=== PATIENT | female | born 1935 | race Caucasian/White ===

== ENCOUNTER → 2016-12-19 | Outpatient (CLI) | payer MEDICARE, OTHER ==
[~2016-12-19] MED LIST: ASP81TEC PO; BACL10TA PO; CATHETER FLUSH 10 ML SYR IV PRN; GABA-486 PO; GBPN100C PO; IOHEXOL 350 MG/ML 100 ML (OMNIPAQUE 350) VIAL IV ONE; NF-TYLARTH PO; NS 100 ML (IVPB) BAG IV ONE; OMEP-10 PO; ROPI1TAB40 PO
[2016-12-19 12:52] LABS: CREATININE SERUM 1.02 MG/DL (0.60-1.30)
--- NOTE | 2016-12-19 14:40 | Diagnostic Imaging Report ---
PROCEDURE: CT angiography of the abdomen with and without contrast. TECHNIQUE: Multiple contiguous axial images were obtained through the abdomen and pelvis after administration of intravenous contrast. MIP reconstructions were made. INDICATION: Abdominal aortic aneurysm status post endograft placement. 85 mL of Omnipaque 350 is administered intravenously. FINDINGS: The lung bases demonstrate minimal atelectasis or scarring. The liver, the spleen, the pancreas, and the adrenal glands appear unremarkable. The kidneys have symmetric enhancement and contrast excretion. There is no hydronephrosis. The unenhanced phase demonstrates no renal stones. There is an abdominal aortic aneurysm with maximum caliber of 4.8 cm. This is associated with an endograft repair with a bifurcating aortoiliac graft seen in place landing in the distal common iliac artery bilaterally. The endograft excludes flow from the aneurysmal sac outside the graft. No evidence of an endoleak. There is suggestion of moderate stenosis along the proximal aspect of the right iliac limb. The iliac limbs otherwise appear patent. Both renal arteries appear to be opacified. The origin of the left renal artery obscured by beam hardening artifact from the graft fenestrated portion. The origin of the right renal artery demonstrates a short segment focal severe stenosis. The SMA demonstrates proximal moderate to severe stenosis. The celiac trunk demonstrates proximal mild stenosis. The RICKY appears to be occluded with reconstitution from SMA branches. There is a pulse generator in the left lumbar region with a likely epidural lead coursing above the [id number] of this exam. IMPRESSION: 1. There is a 4.8 cm infrarenal AAA treated with a bifurcating aortoiliac endograft with no evidence of endoleak. 2. There is moderate stenosis suggested along the proximal aspect of the right iliac limb of the endograft. 3. 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 4. 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 Dictated by: Dictated on workstation # [id number]
== END ==
LOC: RAD 12:25
PROVIDERS: ATTEND Nurse Practitioner
DX: I71.4 Abdominal aortic aneurysm, without rupture (principal); I70.1 Atherosclerosis of renal artery; K55.1 Chronic vascular disorders of intestine; Z95.828 Presence of other vascular implants and grafts
CPT/HCPCS: 36415; 74175; 82565

== ENCOUNTER → 2017-05-13 | Outpatient (CLI) | payer MEDICARE, OTHER ==
[~2017-05-13] MED LIST changes: -NS 100 ML (IVPB) BAG IV ONE; +NS 250 ML (IVPB) BAG IV ONE
[2017-05-13 10:05] LABS: ALBUMIN 4.2 GM/DL (3.2-4.5); CALCIUM 9.2 MG/DL (8.5-10.1); CREATININE SERUM 0.96 MG/DL (0.60-1.30); PHOSPHORUS 3.1 MG/DL (2.3-4.7); POTASSIUM 3.9 MMOL/L (3.6-5.0)
--- NOTE | 2017-05-13 10:51 | Diagnostic Imaging Report ---
PROCEDURE: CT angiography of the abdomen with and without contrast. TECHNIQUE: Multiple contiguous axial images were obtained through the abdomen and pelvis after administration of intravenous contrast. MIP reconstructions were made. INDICATION: Abdominal aortic aneurysm, followup. FINDINGS: The lung bases are clear. No discrete liver mass is identified. The gallbladder is unremarkable. The pancreas and spleen are unremarkable. No adrenal mass is seen. The kidneys appear stable. The abdominal aortic aneurysm treated with an aortic stent graft is again noted. The excluded aneurysm sac dimensions are stable at approximately 4.8 cm AP. No endoleak is detected. No periaortic fluid collection is seen to suggest leakage or rupture. Both limbs of the iliac graft appear to be patent. Small and large bowel loops are normal in caliber. There is no ascites. IMPRESSION: Stable abdominal aortic aneurysm treated with an aortic stent graft when compared with prior study from 12/19/2016. There is no evidence of endoleak. No complicating features are detected. Dictated by: Dictated on workstation # [id number]
== END ==
LOC: RAD 09:25
PROVIDERS: ATTEND Nurse Practitioner
DX: I71.4 Abdominal aortic aneurysm, without rupture (principal)
CPT/HCPCS: 36415; 74175; 80069

== ENCOUNTER → 2017-10-23 | Outpatient (CLI) | payer MEDICARE, OTHER ==
[~2017-10-23] MED LIST changes: -CATHETER FLUSH 10 ML SYR IV PRN; -NS 250 ML (IVPB) BAG IV ONE
[2017-10-23 10:55] LABS: ALBUMIN 4.3 GM/DL (3.2-4.5); CALCIUM 9.6 MG/DL (8.5-10.1); CREATININE SERUM 0.95 MG/DL (0.60-1.30); PHOSPHORUS 2.8 MG/DL (2.3-4.7); POTASSIUM 3.9 MMOL/L (3.6-5.0)
--- NOTE | 2017-10-23 13:59 | Diagnostic Imaging Report ---
INDICATION: Abdominal aortic aneurysm, status post repair. Comparison is made with prior CT from 05/13/2017. The lung bases are clear. Liver and gallbladder are unremarkable. Pancreas and spleen are unremarkable. The adrenal glands and kidneys are unremarkable. Infrarenal abdominal aortic aneurysm treated with a stent graft is again noted. Aneurysm sac dimensions are stable at 4.8 cm AP. No definite endoleak is identified. Both limbs of the stent graft appear to be patent. No periaortic fluid collection is seen. The bowel loops are normal caliber. There is sigmoid diverticulosis without evidence of acute diverticulitis. No free fluid is seen. Visualized bladder is unremarkable. Bony structures are not acute. IMPRESSION: 1. Stable infrarenal abdominal aortic aneurysm is treated with a stent graft. There is no evidence of endoleak. 2. Uncomplicated sigmoid diverticulosis. Dictated by: Dictated on workstation # [id number]
== END ==
LOC: RAD 10:22
PROVIDERS: ATTEND Nurse Practitioner
DX: I71.4 Abdominal aortic aneurysm, without rupture (principal); K57.30 Diverticulosis of large intestine without perforation or abscess without bleeding; Z98.890 Other specified postprocedural states; Z95.828 Presence of other vascular implants and grafts
CPT/HCPCS: 36415; 74174; 80069

== ENCOUNTER → 2018-10-23 | Outpatient (CLI) | payer MEDICARE, OTHER ==
[~2018-10-23] MED LIST changes: +AMLO5TAB9 PO; +HOLD METFORMIN - RECEIVED CONTRAST 20 ML VIAL IV SCH; +NS 100 ML (IVPB) BAG IV ONE
[2018-10-23 09:15] LABS: ALBUMIN 4.2 GM/DL (3.2-4.5); CREATININE SERUM 1.08 MG/DL (0.60-1.30); PHOSPHORUS 3.1 MG/DL (2.3-4.7); POTASSIUM 3.7 MMOL/L (3.6-5.0)
--- NOTE | 2018-10-23 12:13 | Diagnostic Imaging Report ---
PROCEDURE: CT angiography of the abdomen with and without contrast. TECHNIQUE: Multiple contiguous axial images were obtained through the abdomen and pelvis after administration of intravenous contrast. 3D MIP reconstructions were made. Auto Exposure Controls were utilized during the CT exam to meet ALARA standards for radiation dose reduction. INDICATION: Abdominal aortic aneurysm, status post aortic stent graft repair. Exams performed for followup. FINDINGS: Lung bases show minimal scarring or atelectasis right lower lobe. The liver and gallbladder are unremarkable. The pancreas and spleen are unremarkable. No adrenal mass is detected. Kidneys are unremarkable. Abdominal aortic aneurysm treated with an aortic stent graft is again noted. The excluded aneurysm sac dimension is 4.2 cm AP diameter compared with 4.8 cm on prior exam. Both limbs of the iliac graft are patent. There is no evidence of an endoleak. No perianeurysmal fluid collection or evidence of rupture is identified. Bowel loops are normal caliber. No ascites. IMPRESSION: 1. Abdominal aortic aneurysm treated with aortic stent graft. Excluded aneurysm sac dimensions have decreased in size since examination one year earlier. There is no evidence of endoleak. Dictated by: Dictated on workstation # [id number]
== END ==
LOC: RAD 08:40
PROVIDERS: ATTEND Thoracic Surgery (Cardiothoracic Vascular Surgery)
DX: I71.4 Abdominal aortic aneurysm, without rupture (principal); Z95.828 Presence of other vascular implants and grafts
CPT/HCPCS: 36415; 74175; 80069

== ENCOUNTER 2018-10-27 09:24 | Emergency (ER) | payer MEDICARE, OTHER ==
[~2018-10-27] VITALS: Ht 162.5 cm; Wt 59.0 kg
[~2018-10-27 09:24] MED LIST changes: -AMLO5TAB9 PO; -HOLD METFORMIN - RECEIVED CONTRAST 20 ML VIAL IV SCH; -IOHEXOL 350 MG/ML 100 ML (OMNIPAQUE 350) VIAL IV ONE; -NS 100 ML (IVPB) BAG IV ONE
--- NOTE | 2018-10-27 10:27 | ED EENT ---
History of Present Illness General Chief Complaint: Eye Problems Stated Complaint: R EYE ISSUES Nursing Triage Note: PT AMB TO [facility] 8 WITH COMPLAINT OF RIGHT EYE REDNESS. STATES HAS BEEN GOING ON FOR THREE DAYS. STATES HAS NOT IMPROVED. Source: patient Exam Limitations: no limitations (ABBEY SHORT) History of Present Illness Date Seen by Provider: Oct 27, 2018 Time Seen by Provider: 10:13 Initial Comments Patient presents to ER from home with chief complaint she noticed bright red blood in the whites of her eye on the right side. She does not have a history of high blood pressure but she does have noted white coat syndrome. She has a AAA followed by Dr. Prasad. Last she had an annual CT of her belly to examine it but she has not got the results yet. She's not having any belly pain now. She takes aspirin every other day and omeprazole as well as some vitamins. She is followed by Dr. Mason for primary care. (ABBEY SHORT) Allergies and Home Medications Allergies Coded Allergies: Choline Salicylate (Unverified Allergy, Unknown, 12/01/13) Diclofenac (Unverified Allergy, Unknown, 12/01/13) Flurazepam HCl (Unverified Allergy, Unknown, 12/01/13) [place]-3 acid Ethyl Esters (Unverified Allergy, Unknown, 12/01/13) Occpbsg-Mfx-Fli Reductase Inhibitor (Unverified Allergy, Unknown, 12/01/13) Sulfa (Sulfonamide Antibiotics) (Unverified Allergy, Unknown, 12/01/13) Sulindac (Unverified Allergy, Unknown, 12/01/13) adhesive (Unverified Allergy, Unknown, 12/01/13) alprazolam (Unverified Allergy, Unknown, 12/01/13) amitriptyline (Unverified Allergy, Unknown, 12/01/13) amitriptyline HCl (Unverified Allergy, Unknown, 12/01/13) "ITCHING" aspirin (Unverified Allergy, Unknown, 12/01/13) azithromycin (Unverified Allergy, Unknown, RASH, 12/01/13) clopidogrel bisulfate (Unverified Allergy, Unknown, 12/01/13) codeine (Unverified Allergy, Unknown, 12/01/13) cyclobenzaprine HCl (Unverified Allergy, Unknown, 12/01/13) ezetimibe (Unverified Allergy, Unknown, 12/01/13) fexofenadine HCl (Unverified Allergy, Unknown, 12/01/13) ibuprofen (Unverified Allergy, Unknown, 12/01/13) iodine (Unverified Allergy, Unknown, 12/01/13) lorazepam (Unverified Allergy, Unknown, 12/01/13) magnesium salicylate (Unverified Allergy, Unknown, 12/01/13) meperidine HCl (Unverified Allergy, Unknown, 12/01/13) morphine (Unverified Allergy, Unknown, 12/01/13) naproxen (Unverified Allergy, Unknown, 12/01/13) niacin (Unverified Allergy, Unknown, 12/01/13) piroxicam (Unverified Allergy, Unknown, 12/01/13) potassium (Unverified Allergy, Unknown, 12/01/13) propoxyphene HCl (Unverified Allergy, Unknown, 12/01/13) triazolam (Unverified Allergy, Unknown, 12/01/13) Home Medications Acetaminophen 650 Mg Cplt, 1,300 MG PO PRN PRN for PAIN, (Reported) Amlodipine Besylate 5 Mg Tablet, 5 MG PO DAILY Prescribed by: TAMICA DURÁN on 10/27/18 1157 Baclofen 10 Mg Tablet, 1 EACH PO HS, (Reported) Gabapentin 100 Mg Capsule, 200 MG PO AM, (Reported) Gabapentin 100 Mg Capsule, 300 MG PO HS, (Reported) Omeprazole 20 Mg Capsule.dr, 20 MG PO DAILY PRN, (Reported) TAKES FOR ACID CONTROL Ropinirole Hcl 1 Mg Tablet, 1 MG PO HS, (Reported) Patient Home Medication List Home Medication List Reviewed: Yes (ABBEY SHORT) Review of Systems Review of Systems Constitutional: see HPI; No chills, No fever Eyes: See HPI, Other (broken blood vessel in right eye conjunctiva) (TAMICA DURÁN) All Other Systems Reviewed Negative Unless Noted: Yes (TAMICA DURÁN) Past Basyllk-Hxkyjy-Lfghwr Hx Past Med/Social Hx: Reviewed Nursing Past Med/Soc Hx (TAMICA DURÁN) Patient Social History Alcohol Use: Denies Use Recreational Drug Use: No Smoking Status: Never a Smoker Recent Foreign Travel: No Contact w/Someone Who Travel: No Recent Infectious Disease Expo: No Physical Abuse: No Sexual Abuse: No Mistreated: No Fear: No (ABBEY SHORT) Immunizations Up To Date Date of Pneumonia Vaccine: Nov 19, 1999 Date of Influenza Vaccine: Dec 02, 2013 (ABBEY SHORT) Past Medical History Surgeries: Yes (THORACIC OUTLET BILATERAL ARMS, RIGHT KNEE SCOPE, BACK SURGER, LEFT CEA, ) Respiratory: No Cardiac: Yes (AAA) Aneurysm Neurological: Yes Reproductive Disorders: No Sexually Transmitted Disease: No Gastrointestinal: Yes (COLON POLYP REMOVED) Musculoskeletal: Yes (MUCLE LOSS FROM USE OF STATINS) Endocrine: No Blood Disorders: Yes (ABBEY SHORT) Family Medical History Reviewed Nursing Family Hx (TAMICA DURÁN) Physical Exam Vital Signs Vital Signs - First Documented 10/27/18 09:40 Temp 36.4 Pulse 73 Resp 16 B/P (MAP) 219/109 Pulse Ox 99 O2 Delivery Room Air (TAMICA DURÁN) Height, Weight, BMI Height: 5'4.00" Weight: 170lbs. 0.0oz. 77.065290mc; 22.00 BMI Method: (ABBEY SHORT) General Appearance: WD/WN, no apparent distress Eyes: right eye conjunctival hemorrhage; bilateral eye PERRL, bilateral eye EOMI Cardiovascular: normal peripheral pulses, regular rate, rhythm, no edema, no gallop, no JVD, no murmur Respiratory: chest non-tender, lungs clear, normal breath sounds, no respiratory distress, no accessory muscle use Neurologic/Psychiatric: alert, normal mood/affect, oriented x 3 Skin: normal color, warm/dry (TAMICA DURÁN) Progress/Results/Core Measures Results/Orders Lab Results Laboratory Tests Test 10/27/18 10:50 Range/Units White Blood Count 4.9 4.3-11.0 10^3/uL Red Blood Count 3.70 L 4.35-5.85 10^6/uL Hemoglobin 11.2 L 11.5-16.0 G/DL Hematocrit 35 35-52 % Mean Corpuscular Volume 93 80-99 FL Mean Corpuscular Hemoglobin 30 25-34 PG Mean Corpuscular Hemoglobin Concent 33 32-36 G/DL Red Cell Distribution Width 13.4 10.0-14.5 % Platelet Count 158 130-400 10^3/uL Mean Platelet Volume 10.7 H 7.4-10.4 FL Neutrophils (%) (Auto) 71 42-75 % Lymphocytes (%) (Auto) 18 12-44 % Monocytes (%) (Auto) 10 0-12 % Eosinophils (%) (Auto) 1 0-10 % Basophils (%) (Auto) 0 0-10 % Neutrophils # (Auto) 3.5 1.8-7.8 X 10^3 Lymphocytes # (Auto) 0.9 L 1.0-4.0 X 10^3 Monocytes # (Auto) 0.5 0.0-1.0 X 10^3 Eosinophils # (Auto) 0.1 0.0-0.3 10^3/uL Basophils # (Auto) 0.0 0.0-0.1 10^3/uL Sodium Level 141 135-145 MMOL/L Potassium Level 4.0 3.6-5.0 MMOL/L Chloride Level 106 98-107 MMOL/L Carbon Dioxide Level 25 21-32 MMOL/L Anion Gap 10 5-14 MMOL/L Blood Urea Nitrogen 23 H 7-18 MG/DL Creatinine 1.09 0.60-1.30 MG/DL Estimat Glomerular Filtration Rate 48 BUN/Creatinine Ratio 21 Glucose Level 96 70-105 MG/DL Calcium Level 9.6 8.5-10.1 MG/DL Corrected Calcium 9.4 8.5-10.1 MG/DL Total Bilirubin 0.5 0.1-1.0 MG/DL Aspartate Amino Transf (AST/SGOT) 20 5-34 U/L Alanine Aminotransferase (ALT/SGPT) 10 0-55 U/L Alkaline Phosphatase 74 40-136 U/L Total Protein 7.0 6.4-8.2 GM/DL Albumin 4.3 3.2-4.5 GM/DL (BERNOT,TAMICA) Medications Given in ED Current Medications Medications Dose Ordered Sig/Kathryn Route Start Time Stop Time Status Last Admin Dose Admin Hydralazine HCl 10 mg ONCE ONCE IV 10/27/18 10:30 10/27/18 10:31 DC 10/27/18 10:53 10 MG (BERNOTTAMICA) Vital Signs/I&O 10/27/18 10/27/18 09:40 12:47 Temp 36.4 Pulse 73 61 Resp 16 18 B/P (MAP) 219/109 179/73 Pulse Ox 99 96 O2 Delivery Room Air Room Air (LEEANNATAMICA) Blood Pressure Mean: 145 Progress Progress Note : Time: 10:[address] angiogram 10/23/18: Abdominal aortic aneurysm treated with aortic stent graft. The excluded aneurysm sac dimensions have decreased in size since examination one year earlier. There is no evidence of endoleak. Her blood pressure has been significantly elevated around 200/110 since she's been here. Given her about 30 minutes observation to see if it would come down on its own and it has not. She is asymptomatic otherwise with no pain. She had a CT angiogram last week that was showing improvement from last year so we'll try and get her blood pressure down with hydralazine acutely. (ABBEY SHORT) Progress Note : Progress Note 1200: Patient's blood pressure has improved. She is currently 160s over 70s. She still asymptomatic. I have made her an appointment for follow-up tomorrow at [address] Mason's office. She will be starting amlodipine 5 mg daily. She agrees with plan of care, plans for discharge, return precautions were given. (TAMICA DURÁN) Departure Impression Primary Impression: Conjunctival hemorrhage of right eye Additional Impression: Hypertension Disposition: 01 HOME, SELF-CARE Condition: Stable/Unchanged Departure-Patient Inst. Decision time for Depature: 11:53 (TAMICA DURÁN) Referrals: PB MASON MD (PCP/Family) Primary Care Physician Patient Instructions: High Blood Pressure in Adults, Subconjunctival Hemorrhage Add. Discharge Instructions: Medication as directed. Be sure to make your appointment that I have scheduled tomorrow at the [facility], clinic at 1140. Return back to the emergency room for worsening symptoms or concerns as needed. All discharge instructions reviewed with patient and/or family. Voiced understanding. Scripts Amlodipine Besylate (Amlodipine Besylate) 5 Mg Tablet 5 MG PO DAILY for 7 Days, #7 TAB Prov: TAMICA DURÁN 10/27/18 ABBEY SHORT Oct 27, 2018 10:27 TAMICA DURÁN Oct 27, 2018 11:57
[2018-10-27] MEDS ORDERED: hydrALAZINE (APESOLINE) 20 MG/ML VIAL IV ONE (10:30)
[2018-10-27 11:07] LABS: BASOPHILS % (AUTO) 0 % (0-10); EOSINOPHILS # (AUTO) 0.1 10^3/uL (0.0-0.3); EOSINOPHILS % (AUTO) 1 % (0-10); HEMATOCRIT 35 % (35-52); HEMOGLOBIN 11.2 G/DL (11.5-16.0); LYMPHOCYTES # (AUTO) 0.9 X 10^3 (1.0-4.0); LYMPHOCYTES % (AUTO) 18 % (12-44); MEAN CORPUSCULAR HEMOGLOBIN 30 PG (25-34); MEAN CORPUSCULAR HGB CONC 33 G/DL (32-36); MEAN CORPUSCULAR VOLUME 93 FL (80-99); MEAN PLATELET VOLUME 10.7 FL (7.4-10.4); MONOCYTES # (AUTO) 0.5 X 10^3 (0.0-1.0); MONOCYTES % (AUTO) 10 % (0-12); NEUTROPHILS # (AUTO) 3.5 X 10^3 (1.8-7.8); NEUTROPHILS % (AUTO) 71 % (42-75); PLATELET COUNT 158 10^3/uL (130-400); RED CELL DISTRIBUTION WIDTH 13.4 % (10.0-14.5); WHITE BLOOD COUNT 4.9 10^3/uL (4.3-11.0)
[2018-10-27 11:31] LABS: ALBUMIN 4.3 GM/DL (3.2-4.5); BILIRUBIN,TOTAL 0.5 MG/DL (0.1-1.0); CALCIUM 9.6 MG/DL (8.5-10.1); CREATININE SERUM 1.09 MG/DL (0.60-1.30)
[2018-10-27] MEDS ORDERED: AMLO5TAB9 PO (11:57)
[2018-10-27 12:47] VITALS: BP 179/73
== END 2018-10-27 12:47 | disposition home or self-care (01) ==
LOC: EDUNIT# 09:24 → ER 09:24
DX: H11.31 Conjunctival hemorrhage, right eye (principal); I10 Essential (primary) hypertension; Z86.010 Personal history of colon polyps; Z79.82 Long term (current) use of aspirin; Z88.5 Allergy status to narcotic agent; Z88.8 Allergy status to other drugs, medicaments and biological substances; Z88.2 Allergy status to sulfonamides; Z88.6 Allergy status to analgesic agent; Z88.1 Allergy status to other antibiotic agents
CPT/HCPCS: 36415; 80053; 85025

== ENCOUNTER → 2019-10-27 | Outpatient (CLI) | payer MEDICARE, OTHER ==
[~2019-10-27] MED LIST changes: +AMLO5TAB9 PO
[2019-10-27 10:34] LABS: CREATININE SERUM 1.7 MG/DL (0.60-1.30)
--- NOTE | 2019-10-27 13:11 | Diagnostic Imaging Report ---
PROCEDURE: CT abdomen and pelvis without contrast. TECHNIQUE: Multiple contiguous axial images were obtained through the abdomen and pelvis without the use of intravenous contrast. Auto Exposure Controls were utilized during the CT exam to meet ALARA standards for radiation dose reduction. INDICATION: Abdominal aortic aneurysm. Comparison made with prior examination from 10/23/2018. FINDINGS: The lung bases are clear. The liver is normal in size without focal lesions. Gallbladder is unremarkable. There is no biliary ductal dilatation. Spleen is normal. The pancreas and adrenal glands are unremarkable. There appears to be some cortical atrophy of the kidneys. There is a stent graft in the abdominal aorta. Maximum aortic sac diameter is decreased from 4.4 cm to 4 cm. Bowel gas pattern is nonspecific. There is no free air. There is diverticular disease. There is no ascites. There are no focal inflammatory changes. There is no pelvic mass or adenopathy. There are degenerative changes in the spine. IMPRESSION: Stent graft remains in satisfactory position. There has been interval decrease in size of the maximum aortic sac diameter to 4 cm. Diverticular disease without evidence of diverticulitis. No other acute abnormality in the abdomen or pelvis. Dictated by: Dictated on workstation # [id number]
== END ==
LOC: RAD 09:55
PROVIDERS: ATTEND Nurse Practitioner
DX: I71.4 Abdominal aortic aneurysm, without rupture (principal); K57.90 Diverticulosis of intestine, part unspecified, without perforation or abscess without bleeding; Z95.5 Presence of coronary angioplasty implant and graft
CPT/HCPCS: 36415; 74176; 82565; 84520

== ENCOUNTER → 2019-11-15 | Outpatient (CLI) | payer MEDICARE, OTHER ==
--- NOTE | 2019-11-15 16:52 | Diagnostic Imaging Report ---
Procedure: CT head without contrast. Technique: Multiple contiguous axial images were obtained through the brain without the use of intravenous contrast. Auto Exposure Controls were utilized during the CT exam to meet ALARA standards for radiation dose reduction. Indication: Altered mental status with head injury after fall, pain. Comparison: None. Discussion: Mild diffuse brain volume loss is likely age-related. White matter hypoattenuation is nonspecific, greater than expected for age related chronic small vessel ischemic disease. No acute intracranial hemorrhage, mass, midline shift or hydrocephalus. The orbits, sinuses, mastoid air cells and calvarium are unremarkable. Mild left forehead soft tissue swelling. Impression: Senescent changes as described. No acute intracranial abnormality identified. Message was left on the requesting provider phone by Dr. Saunders at time of exam. Dictated by: Dictated on workstation # [id number]
--- NOTE | 2019-11-15 17:12 | Diagnostic Imaging Report ---
CLINICAL INDICATION: Patient is status post fall with bilateral leg pain. EXAM: X-ray of the right and left tibia and fibula, 8 views total. COMPARISON: None. FINDINGS: X-ray of both tibia and fibula show no acute fracture or dislocation. There is no knee effusion. There are small spurs involving the medial compartments and patellofemoral compartments, bilaterally. The visualized portions of the ankle involving both lower extremities are unremarkable. IMPRESSION: X-ray of the bilateral tibia and fibula show no acute fracture or dislocation. Results of this report were discussed with Meg Sosa APRN via the telephone on 11/15/2019 at 1704 hours. Dictated by: Dictated on workstation # [id number]
--- NOTE | 2019-11-15 17:12 | Diagnostic Imaging Report ---
CLINICAL INDICATION: Patient is status post fall with bruising noted to left upper arm. EXAM: X-ray of the left humerus, 2 views. COMPARISON: None. FINDINGS: There is no acute fracture or dislocation. There is no significant bony abnormality. There is no gross elbow effusion. Glenohumeral joints intact, as visualized. IMPRESSION: There is no acute fracture or dislocation. Results of this report were discussed with Meg Sosa APRN via the telephone on 11/15/2019 at 1704 hours. Dictated by: Dictated on workstation # [id number]
--- NOTE | 2019-11-15 17:14 | Diagnostic Imaging Report ---
CLINICAL INDICATION: Patient is status post fall two days ago and complains of hip pain. EXAM: X-ray of the left hip, AP and frog-leg views. COMPARISON: CT scan of the abdomen and pelvis performed without contrast dated 12/27/2019. FINDINGS: There is no acute fracture or dislocation. There is mild enthesopathy involving the left greater trochanter. The femoral acetabular joints intact. Symphysis pubis region is unremarkable. Visualized portions of the sacrum are unremarkable. Partially visualized endovascular stent graft overlying the lower abdominal region is seen. 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 Results of this report was discussed with Meg Sosa APRN via the telephone on 11/15/2019 at 1704 hours. Dictated by: Dictated on workstation # [id number]
== END ==
LOC: RAD 15:58
PROVIDERS: ATTEND Nurse Practitioner Family
DX: S06.0X0A Concussion without loss of consciousness, initial encounter (principal); S00.03XA Contusion of scalp, initial encounter; S40.022A Contusion of left upper arm, initial encounter; M16.12 Unilateral primary osteoarthritis, left hip; M79.605 Pain in left leg; M79.604 Pain in right leg; W01.0XXA Fall on same level from slipping, tripping and stumbling without subsequent striking against object, initial encounter
CPT/HCPCS: 70450; 73060; 73502

== ENCOUNTER → 2020-03-21 | Outpatient (CLI) | payer MEDICARE, OTHER ==
[~2020-03-21] MED LIST changes: +AMLO-250 PO; -AMLO5TAB9 PO
[2020-03-21 17:14] LABS: CREATININE SERUM 1.63 MG/DL (0.60-1.30); POTASSIUM 4.3 MMOL/L (3.6-5.0)
[2020-03-21 17:15] LABS: ALBUMIN 4.2 GM/DL (3.2-4.5); BILIRUBIN,TOTAL 0.4 MG/DL (0.1-1.0); CALCIUM 9.5 MG/DL (8.5-10.1)
== END ==
LOC: LAB FS 16:21
PROVIDERS: ATTEND Family Medicine
DX: G25.0 Essential tremor (principal); I10 Essential (primary) hypertension
CPT/HCPCS: 36415; 80053; 82607; 84443

== ENCOUNTER → 2020-03-28 | Outpatient (CLI) | payer MEDICARE, OTHER ==
[2020-03-28 14:48] LABS: POTASSIUM 4.1 MMOL/L (3.6-5.0)
[2020-03-28 14:49] LABS: CALCIUM 9.9 MG/DL (8.5-10.1); CREATININE SERUM 1.75 MG/DL (0.60-1.30)
== END ==
LOC: LAB FS 14:07
PROVIDERS: ATTEND Family Medicine
DX: R79.89 Other specified abnormal findings of blood chemistry (principal)
CPT/HCPCS: 36415; 80048

== ENCOUNTER → 2020-04-11 | Outpatient (CLI) | payer MEDICARE, OTHER ==
--- NOTE | 2020-04-11 17:03 | Diagnostic Imaging Report ---
EXAMINATION: US Retroperitoneal Complete. TECHNIQUE: Multiple real-time grayscale images were obtained over the kidneys in various projections bilaterally. HISTORY: Abnormal creatinine. COMPARISON: None available. FINDINGS: The right kidney is normal in size measuring 9.7 x 4.0 x 4.7 cm. The echogenicity is normal. There is no hydronephrosis. No stones are seen. Cyst is present in the right kidney, no suspicious renal lesions. The left kidney is normal in size measuring 8.2 x 4.1 x 3.4 cm. The echogenicity is normal. There is no hydronephrosis. No stones are seen. No suspicious lesions. The urinary bladder is normal. Bilateral ureteral jets are seen. IMPRESSION: 1. Normal kidneys without hydronephrosis. Dictated by: Dictated on workstation # [id number]
== END ==
LOC: RAD FS 14:45
PROVIDERS: ATTEND Family Medicine
DX: R79.89 Other specified abnormal findings of blood chemistry (principal)
CPT/HCPCS: 76770

== ENCOUNTER → 2020-05-30 | Outpatient (CLI) | payer MEDICARE | LOC: LAB FS 15:12 | PROVIDERS: ATTEND Family Medicine | DX: E53.8 Deficiency of other specified B group vitamins (principal) | CPT/HCPCS: 36415; 82607 ==

== ENCOUNTER → 2020-09-20 | Outpatient (CLI) | payer MEDICARE, OTHER ==
--- NOTE | 2020-09-20 15:11 | Diagnostic Imaging Report ---
EXAMINATION: CT abdomen and pelvis without contrast. TECHNIQUE: Multiple contiguous axial images were obtained through the abdomen and pelvis without the use of intravenous contrast. All CT scans use one or more of the following dose optimizing techniques: automated exposure control, MA and/or KvP adjustment based on patient size and exam type or iterative reconstruction. HISTORY: Abdominal aortic aneurysm. COMPARISON: CT 10/27/2019. FINDINGS: Lung bases: Bibasilar dependent atelectasis. Solid organs: The liver is normal. The gallbladder is normal. There is no biliary ductal dilation. Pancreas is normal. Spleen is normal. Adrenal glands are normal. The kidneys are normal without visualized calculus or hydronephrosis. Bowel: The stomach and small bowel are normal without obstruction. There is scattered colonic diverticulosis. No findings of acute appendicitis. Peritoneum: There is no intraperitoneal free fluid or free air. No suspicious lymphadenopathy. Vasculature: There are scattered calcifications of the aorta and branching vessels. There is aneurysmal dilatation of the infrarenal abdominal aorta measuring up to 4.1 x 4.0 cm. Endograft is present and unchanged extending from the upper abdominal aorta up to the common iliac arteries. Musculoskeletal: Degenerative changes of the spine without suspicious osseous lesion or compression fracture. Pelvis: The uterus is surgically absent. No adnexal mass. The urinary bladder is normal. IMPRESSION: 1. Stable size and appearance of the infrarenal abdominal aortic aneurysm measuring up to 4.1 x 4.0 cm status post endograft placement. 2. No other acute abnormality in the abdomen or pelvis. 3. Colonic diverticulosis without findings of diverticulitis. Dictated by: Dictated on workstation # [id number]
== END ==
LOC: RAD 14:15
PROVIDERS: ATTEND Nurse Practitioner
DX: I71.4 Abdominal aortic aneurysm, without rupture (principal); K57.30 Diverticulosis of large intestine without perforation or abscess without bleeding
CPT/HCPCS: 74176

== ENCOUNTER → 2020-10-17 | Outpatient (CLI) | payer MEDICARE, OTHER ==
[2020-10-17 10:41] LABS: CREATININE SERUM 1.8 MG/DL (0.60-1.30)
--- NOTE | 2020-10-17 12:10 | Diagnostic Imaging Report ---
PROCEDURE: CT abdomen and pelvis without contrast. TECHNIQUE: Multiple contiguous axial images were obtained through the abdomen and pelvis without the use of intravenous contrast. Auto Exposure Controls were utilized during the CT exam to meet ALARA standards for radiation dose reduction. INDICATION: Abdominal aortic aneurysm. Study is performed for follow-up. Correlation is made with prior CT from 09/20/2020. FINDINGS: Imaging through lung bases does show some atelectasis or scarring in the lingula. Infrarenal abdominal aortic aneurysm treated with endograft is again noted. Excluded aneurysm sac dimensions approximately 3.9 cm AP by 4.1 cm transverse compared with 4.0 cm AP by 4.2 cm transverse on prior. No perianeurysmal fluid collection is seen. Evaluation for endoleak cannot be performed due to absence of intravenous contrast. Liver and gallbladder are unremarkable. The pancreas and spleen are unremarkable. No adrenal mass is detected. Kidneys are unremarkable. Bowel loops are normal caliber. There is diverticulosis of the sigmoid and descending colon but no evidence of acute diverticulitis. No free fluid is seen. Bladder is decompressed. IMPRESSION: Stable infrarenal abdominal aortic aneurysm treated with endograft when compared with exam from 09/20/2020. Dictated by: Dictated on workstation # [id number]
== END ==
LOC: RAD FS 09:49
PROVIDERS: ATTEND Nurse Practitioner
DX: I71.4 Abdominal aortic aneurysm, without rupture (principal)
CPT/HCPCS: 36415; 74176; 82565; 84520

== ENCOUNTER → 2020-11-08 | Outpatient (CLI) | payer MEDICARE, OTHER ==
--- NOTE | 2020-11-08 16:14 | Diagnostic Imaging Report ---
INDICATION: Right elbow pain, history of fall. TECHNIQUE: AP, oblique, and lateral views of the right elbow were obtained. FINDINGS: No fracture or acute bony abnormality is seen. The joint spaces are unremarkable. IMPRESSION: Negative right elbow. Dictated by: Dictated on workstation # [id number]
== END ==
LOC: RAD FS 14:22
PROVIDERS: ATTEND Nurse Practitioner Family
DX: M25.521 Pain in right elbow (principal); Z91.81 History of falling
CPT/HCPCS: 73080

== ENCOUNTER → 2021-11-06 | Outpatient (CLI) | payer MEDICARE, OTHER ==
--- NOTE | 2021-11-06 11:42 | Diagnostic Imaging Report ---
PROCEDURE: CT abdomen and pelvis without contrast. TECHNIQUE: Multiple contiguous axial images were obtained through the abdomen and pelvis without the use of intravenous contrast. Auto Exposure Controls were utilized during the CT exam to meet ALARA standards for radiation dose reduction. INDICATION: Abdominal aortic aneurysm. Comparison is made with prior exam of 10/17/2020. FINDINGS: Heart size is normal. There is minimal scarring in the lung bases. The liver is normal in size without focal lesions. The gallbladder is unremarkable. No biliary duct dilatation. Spleen is normal. The pancreas and adrenal glands are unremarkable. There is a cyst in the right kidney. Kidneys are otherwise unremarkable. There is a stent graft in the abdominal aorta. Maximum aortic sac diameter is 4.2 cm. This is unchanged. The bowel gas pattern is nonspecific. There is some diverticular disease without evidence of diverticulitis. No free air. No ascites. No focal inflammatory changes. Bladder is normal. There is no pelvic mass, adenopathy or free fluid. There are degenerative changes in the spine. IMPRESSION: Stable 4.2 cm infrarenal abdominal aortic aneurysm which is been treated with a stent graft. Diverticular disease without evidence of diverticulitis. Small right renal cyst. Dictated by: Dictated on workstation # [id number]
== END ==
LOC: RAD FS 10:37
PROVIDERS: ATTEND Nurse Practitioner
DX: I71.4 Abdominal aortic aneurysm, without rupture (principal); K57.90 Diverticulosis of intestine, part unspecified, without perforation or abscess without bleeding; N28.1 Cyst of kidney, acquired
CPT/HCPCS: 74176

== ENCOUNTER 2021-12-17 10:43 | Emergency (ER) | payer MEDICARE, OTHER ==
[~2021-12-17] VITALS: Ht 162.6 cm; Wt 61.7 kg
[2021-12-17 11:15] LABS: BASOPHILS % (AUTO) 1 % (0-10); EOSINOPHILS # (AUTO) 0.1 10^3/uL (0.0-0.3); EOSINOPHILS % (AUTO) 2 % (0-10); HEMATOCRIT 34 % (35-52); HEMOGLOBIN 11.7 g/dL (11.5-16.0); LYMPHOCYTES # (AUTO) 0.7 10^3/uL (1.0-4.0); LYMPHOCYTES % (AUTO) 14 % (12-44); MEAN CORPUSCULAR HEMOGLOBIN 32 pg (25-34); MEAN CORPUSCULAR HGB CONC 34 g/dL (32-36); MEAN CORPUSCULAR VOLUME 93 fL (80-99); MEAN PLATELET VOLUME 11.8 fL (9.0-12.2); MONOCYTES # (AUTO) 0.5 10^3/uL (0.0-1.0); MONOCYTES % (AUTO) 11 % (0-12); NEUTROPHILS # (AUTO) 3.3 10^3/uL (1.8-7.8); NEUTROPHILS % (AUTO) 71 % (42-75); PLATELET COUNT 102 10^3/uL (130-400); WHITE BLOOD COUNT 4.6 10^3/uL (4.3-11.0)
--- NOTE | 2021-12-17 11:15 | ED General ---
General Chief Complaint: General Problems/Pain Stated Complaint: GEN SWELLING Source of Information: Patient, Family, Old Records Exam Limitations: No Limitations History of Present Illness Date Seen by Provider: Dec 17, 2021 Time Seen by Provider: 10:49 Initial Comments 86-year-old female with past medical history of hypertension and CKD coming in with family due to swelling. The patient was admitted to [facility] last week, discharged last night. She was admitted for elevated blood pressure and concern for renal insufficiency. She was initially started on a Cardene drip and eventually transitioned to home hydralazine, doxazosin, carvedilol, and amlodipine. She previously was on hydrochlorothiazide which was discontinued. They noticed some swelling last night, but this morning they thought it was worse in her face, arms, legs. No pain anywhere. Has felt mildly short of breath for over the past week. Is still urinating. Is otherwise denying any ot her acute complaints. Allergies and Home Medications Allergies Coded Allergies: Choline Salicylate (Unverified Allergy, Unknown, 12/01/13) Diclofenac (Unverified Allergy, Unknown, 12/01/13) Flurazepam HCl (Unverified Allergy, Unknown, 12/01/13) [place]-3 acid Ethyl Esters (Unverified Allergy, Unknown, 12/01/13) Evxnmpl-Ucq-Fom Reductase Inhibitor (Unverified Allergy, Unknown, 12/01/13) Sulfa (Sulfonamide Antibiotics) (Unverified Allergy, Unknown, 12/01/13) Sulindac (Unverified Allergy, Unknown, 12/01/13) adhesive (Unverified Allergy, Unknown, 12/01/13) alprazolam (Unverified Allergy, Unknown, 12/01/13) amitriptyline (Unverified Allergy, Unknown, 12/01/13) amitriptyline HCl (Unverified Allergy, Unknown, 12/01/13) "ITCHING" aspirin (Unverified Allergy, Unknown, 12/01/13) azithromycin (Unverified Allergy, Unknown, RASH, 12/01/13) clopidogrel bisulfate (Unverified Allergy, Unknown, 12/01/13) codeine (Unverified Allergy, Unknown, 12/01/13) cyclobenzaprine HCl (Unverified Allergy, Unknown, 12/01/13) ezetimibe (Unverified Allergy, Unknown, 12/01/13) fexofenadine HCl (Unverified Allergy, Unknown, 12/01/13) ibuprofen (Unverified Allergy, Unknown, 12/01/13) iodine (Unverified Allergy, Unknown, 12/01/13) lorazepam (Unverified Allergy, Unknown, 12/01/13) magnesium salicylate (Unverified Allergy, Unknown, 12/01/13) meperidine HCl (Unverified Allergy, Unknown, 12/01/13) morphine (Unverified Allergy, Unknown, 12/01/13) naproxen (Unverified Allergy, Unknown, 12/01/13) niacin (Unverified Allergy, Unknown, 12/01/13) piroxicam (Unverified Allergy, Unknown, 12/01/13) potassium (Unverified Allergy, Unknown, 12/01/13) propoxyphene HCl (Unverified Allergy, Unknown, 12/01/13) triazolam (Unverified Allergy, Unknown, 12/01/13) Patient Home Medication List Home Medication List Reviewed: Yes Acetaminophen (Tylenol Arth Pain (Non-Formulary)) 650 Mg Cplt, 1,300 MG PO PRN PRN for PAIN, (Reported) Entered as Reported by: TIFFANIE MONTEMAYOR on 12/01/13 0937 Amlodipine Besylate (Amlodipine Besylate) 5 Mg Tablet, 5 MG PO DAILY Prescribed by: TAMICA DURÁN on 10/27/18 1157 Baclofen (Baclofen) 10 Mg Tablet, 1 EACH PO HS, (Reported) Entered as Reported by: TIFFANIE MONTEMAYOR on 12/01/13 0937 Furosemide (Lasix) 20 Mg Tablet, 20 MG PO DAILY Prescribed by: YUDY PAEZ on 12/17/21 1152 Gabapentin (Gabapentin) 100 Mg Capsule, 200 MG PO AM, (Reported) Entered as Reported by: TIFFANIE MONTEMAYOR on 12/01/13 0937 Gabapentin (Gabapentin) 100 Mg Capsule, 300 MG PO HS, (Reported) Entered as Reported by: TIFFANIE MONTEMAYOR on 12/01/13 0937 Omeprazole (Prilosec 20 Mg) 20 Mg Capsule.dr, 20 MG PO DAILY PRN, (Reported) Entered as Reported by: MARIIA BROWER on 09/21/10 1430 Potassium Chloride (Potassium Chloride) 20 Meq Tablet.er, 20 MEQ PO DAILY Prescribed by: YUDY PAEZ on 12/17/21 1152 Ropinirole Hcl (Requip) 1 Mg Tablet, 1 MG PO HS, (Reported) Entered as Reported by: MARIIA BROWER on 07/26/11 1250 Review of Systems Review of Systems Constitutional: No fever EENTM: no symptoms reported Respiratory: no symptoms reported Cardiovascular: edema Gastrointestinal: no symptoms reported Genitourinary: no symptoms reported Musculoskeletal: no symptoms reported Skin: no symptoms reported Psychiatric/Neurological: No Symptoms Reported Hematologic/Lymphatic: No Symptoms Reported Immunological/Allergic: no symptoms reported All Other Systems Reviewed Negative Unless Noted: Yes Past Teyfnjh-Xctwhz-Hphnve Hx Patient Social History Tobacco Use?: No Use of E-Cig and/or Vaping dev: No Substance use?: No Alcohol Use?: No Pt feels they are or have been: No Past Medical History Surgery/Hospitalization HX: CKD; HTN Surgeries: Yes (THORACIC OUTLET BILATERAL ARMS, RIGHT KNEE SCOPE, BACK SURGER, LEFT CEA, ) Respiratory: No Cardiac: Yes (AAA) Aneurysm Neurological: Yes Reproductive Disorders: No Sexually Transmitted Disease: No Gastrointestinal: Yes (COLON POLYP REMOVED) 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 0.0oz. 77.105339sb; 22.00 BMI Method: General Appearance: No Apparent Distress, WD/WN Eyes: Bilateral Eye Normal Inspection HEENT: PERRL/EOMI, Normal ENT Inspection, Pharynx Normal Neck: Full Range of Motion, Normal Inspection, Non Tender, Supple Respiratory: Chest Non Tender, Lungs Clear, Normal Breath Sounds, No Accessory Muscle Use, No Respiratory Distress Cardiovascular: Regular Rate, Rhythm, Normal Peripheral Pulses Gastrointestinal: Normal Bowel Sounds, Non Tender, Soft; No Distended, No Guarding Back: Normal Inspection, No CVA Tenderness, No Vertebral Tenderness Extremity: Normal Capillary Refill, Normal Range of Motion, Non Tender, No Calf Tenderness, Pedal Edema Neurologic/Psychiatric: Alert, No Motor/Sensory Deficits, Normal Mood/Affect Skin: Normal Color, Warm/Dry Lymphatic: No Adenopathy Progress/Results/Core Measures Suspected Sepsis SIRS Temperature: Pulse: Respiratory Rate: Laboratory Tests 12/17/21 10:55: White Blood Count 4.6 Blood Pressure / Mean: Laboratory Tests 12/17/21 10:55: Creatinine 1.76H, Platelet Count 102L, Total Bilirubin 0.4 Results/Orders Lab Results Laboratory Tests Test 12/17/21 10:55 Range/Units White Blood Count 4.6 4.3-11.0 10^3/uL Red Blood Count 3.65 L 3.80-5.11 10^6/uL Hemoglobin 11.7 11.5-16.0 g/dL Hematocrit 34 L 35-52 % Mean Corpuscular Volume 93 80-99 fL Mean Corpuscular Hemoglobin 32 25-34 pg Mean Corpuscular Hemoglobin Concent 34 32-36 g/dL Red Cell Distribution Width 12.7 10.0-14.5 % Platelet Count 102 L 130-400 10^3/uL Mean Platelet Volume 11.8 9.0-12.2 fL Immature Granulocyte % (Auto) 0 % Neutrophils (%) (Auto) 71 42-75 % Lymphocytes (%) (Auto) 14 12-44 % Monocytes (%) (Auto) 11 0-12 % Eosinophils (%) (Auto) 2 0-10 % Basophils (%) (Auto) 1 0-10 % Neutrophils # (Auto) 3.3 1.8-7.8 10^3/uL Lymphocytes # (Auto) 0.7 L 1.0-4.0 10^3/uL Monocytes # (Auto) 0.5 0.0-1.0 10^3/uL Eosinophils # (Auto) 0.1 0.0-0.3 10^3/uL Basophils # (Auto) 0.0 0.0-0.1 10^3/uL Immature Granulocyte # (Auto) 0.0 0.0-0.1 10^3/uL Percent Immature Platelet Fraction 8.0 H 0.0-7.6 % Sodium Level 137 135-145 MMOL/L Potassium Level 4.5 3.6-5.0 MMOL/L Chloride Level 103 98-107 MMOL/L Carbon Dioxide Level 21 21-32 MMOL/L Anion Gap 13 5-14 MMOL/L Blood Urea Nitrogen 45 H 7-18 MG/DL Creatinine 1.76 H 0.60-1.30 MG/DL Estimat Glomerular Filtration Rate 28 BUN/Creatinine Ratio 26 Glucose Level 104 70-105 MG/DL Calcium Level 9.3 8.5-10.1 MG/DL Corrected Calcium 9.3 8.5-10.1 MG/DL Magnesium Level 1.8 1.6-2.4 MG/DL Total Bilirubin 0.4 0.1-1.0 MG/DL Aspartate Amino Transf (AST/SGOT) 16 5-34 U/L Alanine Aminotransferase (ALT/SGPT) 11 0-55 U/L Alkaline Phosphatase 80 40-136 U/L Pro-B-Type Natriuretic Peptide 76043.0 H <450.0 PG/ML Total Protein 6.6 6.4-8.2 GM/DL Albumin 4.0 3.2-4.5 GM/DL My Orders Orders - YUDY PAEZ MD Cbc With Automated Diff (12/17/21 11:10) Comprehensive Metabolic Panel (12/17/21 11:10) Magnesium (12/17/21 11:10) Probnp Fs (12/17/21 11:10) Chest 1 View Ap/Pa Only (12/17/21 11:10) Ed Iv/Invasive Line Start (12/17/21 11:10) Ekg Tracing (12/17/21 11:10) Vital Signs/I&O 12/17/21 10:50 Temp 36.4 Pulse 64 Resp 18 B/P (MAP) 162/58 (92) Pulse Ox 96 O2 Delivery Room Air Capillary Refill : Progress Note : Progress Note 86-year-old female with above history coming in due to whole body swelling in the setting of recently starting amlodipine. ABCs were intact and vitals were stable on presentation. Physical exam with mild edema. No signs or symptoms of a DVT including no asymmetric swelling, no pain with palpation of her calf, no chest pain, no prior history of DVT or PE. EKG sinus with no acute ischemic changes. Chest x-ray with trace pleural effusion and possibly mild edema. She does have CKD, and it appears to be baseline based on her labs prior in previous years here. I will start her on a small amount of Lasix for short round until she can follow-up with her PCP to decide if she should maintain being on Lasix. I will tell her to hold the amlodipine for now. She was then discharged home in stable condition with strict return precautions ECG Initial ECG Impression Date: Dec 17, 2021 Initial ECG Impression Time: 11:18 Initial ECG Rate: 55 Initial ECG Rhythm: S.[place] Comment Narrow QRS, normal axis, no significant ST changes or T wave abnormalities Diagnostic Imaging Diagonstic Imaging: Xray (chest) Comments [facility], [place] NAME: TARIK POSADAS [facility] REC#: [id number] PT STATUS: REG ER : 1935 PHYSICIAN: YUDY PAEZ MD ADMIT DATE: 12/17/21/ER FS Draft Date of Exam:12/17/21 CHEST 1 VIEW AP/PA ONLY INDICATION: Shortness of breath, edema COMPARISON: CT of the abdomen and pelvis dated 10/17/2020 TECHNIQUE: Single radiograph of the chest dated 12/17/2021. FINDINGS: Electronic device is identified with the leads extending to overlie the mid thoracic spine. Vascular stent graft is noted overlying the upper abdomen just to the left of midline. The cardiac silhouette is mildly enlarged. No significant pulmonary vascular congestion. Mild diffuse interstitial opacities are present, particularly within the lung bases. Small right pleural effusion. No significant left pleural effusion. No pneumothorax. No acute osseous abnormality. IMPRESSION: Small right pleural effusion. Minimal prominence of the pulmonary interstitium throughout, particularly in the lung bases. It is uncertain whether this relates to minimal interstitial edema versus mild background chronic interstitial lung changes. Additional post surgical and chronic findings, as above. Dictated on workstation # [id number] Dict: 12/17/21 1128 Trans: 12/17/21 1136 [facility] [id number] Interpreted by: BRANDIN GIRON MD Electronically signed by: Departure Impression Primary Impression: Edema Qualified Codes: R60.1 - Generalized edema Additional Impression: CKD (chronic kidney disease) Qualified Codes: N18.4 - Chronic kidney disease, stage 4 (severe) Disposition: 01 HOME, SELF-CARE Condition: Stable Departure-Patient Inst. Decision time for Depature: 11:50 Referrals: TEVIN DAWKINS APRN (PCP) Primary Care Physician [facility] (Family) Primary Care Physician Patient Instructions: Chronic Kidney Disease (DC), Swelling Add. Discharge Instructions: The swelling is likely due in combination to your chronic kidney issues as well as the amlodipine. I do recommend stopping the amlodipine. We will start you on a diuretic to help get some of this fluid off over the next couple of weeks. You will take this with a potassium supplement. Follow-up with your regular doctor for repeat labs and to see if they want to continue on the diuretic. Scripts Potassium Chloride (Potassium Chloride) 20 Meq Tablet.er 20 MEQ PO DAILY for 14 Days, #14 TAB Prov: YUDY PAEZ MD 12/17/21 Furosemide (Lasix) 20 Mg Tablet 20 MG PO DAILY for 14 Days, #14 TAB Prov: YUDY PAEZ MD 12/17/21 YUDY PAEZ MD Dec 17, 2021 11:14
[2021-12-17 11:31] LABS: CALCIUM 9.3 MG/DL (8.5-10.1); CREATININE SERUM 1.76 MG/DL (0.60-1.30); MAGNESIUM 1.8 MG/DL (1.6-2.4); POTASSIUM 4.5 MMOL/L (3.6-5.0)
[2021-12-17 11:32] LABS: BILIRUBIN,TOTAL 0.4 MG/DL (0.1-1.0); TOTAL PROTEIN 6.6 GM/DL (6.4-8.2)
--- NOTE | 2021-12-17 11:36 | Diagnostic Imaging Report ---
INDICATION: Shortness of breath, edema COMPARISON: CT of the abdomen and pelvis dated 10/17/2020 TECHNIQUE: Single radiograph of the chest dated 12/17/2021. FINDINGS: Electronic device is identified with the leads extending to overlie the mid thoracic spine. Vascular stent graft is noted overlying the upper abdomen just to the left of midline. The cardiac silhouette is mildly enlarged. No significant pulmonary vascular congestion. Mild diffuse interstitial opacities are present, particularly within the lung bases. Small right pleural effusion. No significant left pleural effusion. No pneumothorax. No acute osseous abnormality. IMPRESSION: Small right pleural effusion. Minimal prominence of the pulmonary interstitium throughout, particularly in the lung bases. It is uncertain whether this relates to minimal interstitial edema versus mild background chronic interstitial lung changes. Additional post surgical and chronic findings, as above. Dictated by: Dictated on workstation # [id number]
[2021-12-17] MEDS ORDERED: POTA-51 PO (11:52)
[2021-12-17] MEDS ORDERED: FURO-125 PO (11:52)
[2021-12-17] MEDS ORDERED: FUROSEMIDE 20 MG (LASIX) TAB PO ONE (12:15)
[2021-12-17 12:30] VITALS: BP 149/56
== END 2021-12-17 12:30 | disposition home or self-care (01) ==
LOC: EDUNIT# 10:43 → ER FS 10:45
DX: I12.9 Hypertensive chronic kidney disease with stage 1 through stage 4 chronic kidney disease, or unspecified chronic kidney disease (principal); N18.9 Chronic kidney disease, unspecified
CPT/HCPCS: 36415; 71045; 80053; 83735; 83880; 85025; 93005

== ENCOUNTER 2022-01-10 17:40 | Emergency (ER) | payer MEDICARE, OTHER ==
[~2022-01-10] VITALS: Ht 162.6 cm; Wt 61.7 kg
[~2022-01-10 17:40] MED LIST changes: +FURO-125 PO; +POTA-51 PO
[2022-01-10] MEDS ORDERED: CLN.2T PO (17:59)
--- NOTE | 2022-01-10 17:59 | ED Chest Pain ---
General Chief Complaint: Cardiac/General Problems Stated Complaint: HIGH BP Source: patient Exam Limitations: no limitations History of Present Illness Date Seen by Provider: Jan 10, 2022 Time Seen by Provider: 17:50 Initial Comments Patient is a 86-year-old female with history of hypertension, renal insufficiency and aortic aneurysm who presents with asymptomatic hypertension. Patient was recently admitted to [facility] for treatment of hypertension. She was discharged home and as her blood pressure is gradually increased over the past 2 weeks. Blood pressure was 179 at home prior to ED arrival. She denies headache dizziness chest pain palpitation shortness of breath, decreased urinary output, leg pain or swelling. No other acute symptoms or complaints. Additional history obtained from the patient's daughter. Timing/Duration: 1 week, changing over time Severity/Quality: other Location: other Radiation: other Activities at Onset: other Prior CP/Workup: other Modifying Factors: improves with other Allergies and Home Medications Allergies Coded Allergies: Choline Salicylate (Unverified Allergy, Unknown, 12/01/13) Diclofenac (Unverified Allergy, Unknown, 12/01/13) Flurazepam HCl (Unverified Allergy, Unknown, 12/01/13) [place]-3 acid Ethyl Esters (Unverified Allergy, Unknown, 12/01/13) Cwymafn-Uuk-Cgi Reductase Inhibitor (Unverified Allergy, Unknown, 12/01/13 ) Sulfa (Sulfonamide Antibiotics) (Unverified Allergy, Unknown, 12/01/13) Sulindac (Unverified Allergy, Unknown, 12/01/13) adhesive (Unverified Allergy, Unknown, 12/01/13) alprazolam (Unverified Allergy, Unknown, 12/01/13) amitriptyline (Unverified Allergy, Unknown, 12/01/13) amitriptyline HCl (Unverified Allergy, Unknown, 12/01/13) "ITCHING" aspirin (Unverified Allergy, Unknown, 12/01/13) azithromycin (Unverified Allergy, Unknown, RASH, 12/01/13) clopidogrel bisulfate (Unverified Allergy, Unknown, 12/01/13) codeine (Unverified Allergy, Unknown, 12/01/13) cyclobenzaprine HCl (Unverified Allergy, Unknown, 12/01/13) ezetimibe (Unverified Allergy, Unknown, 12/01/13) fexofenadine HCl (Unverified Allergy, Unknown, 12/01/13) ibuprofen (Unverified Allergy, Unknown, 12/01/13) iodine (Unverified Allergy, Unknown, 12/01/13) lorazepam (Unverified Allergy, Unknown, 12/01/13) magnesium salicylate (Unverified Allergy, Unknown, 12/01/13) meperidine HCl (Unverified Allergy, Unknown, 12/01/13) morphine (Unverified Allergy, Unknown, 12/01/13) naproxen (Unverified Allergy, Unknown, 12/01/13) niacin (Unverified Allergy, Unknown, 12/01/13) piroxicam (Unverified Allergy, Unknown, 12/01/13) potassium (Unverified Allergy, Unknown, 12/01/13) propoxyphene HCl (Unverified Allergy, Unknown, 12/01/13) triazolam (Unverified Allergy, Unknown, 12/01/13) Patient Home Medication List Home Medication List Reviewed: Yes Acetaminophen (Tylenol Arth Pain (Non-Formulary)) 650 Mg Cplt, 1,300 MG PO PRN PRN for PAIN, (Reported) Entered as Reported by: TIFFANIE MONTEMAYOR on 12/01/13 0937 Amlodipine Besylate (Amlodipine Besylate) 5 Mg Tablet, 5 MG PO DAILY Prescribed by: TAMICA DURÁN on 10/27/18 1157 Baclofen (Baclofen) 10 Mg Tablet, 1 EACH PO HS, (Reported) Entered as Reported by: TIFFANIE MONTEMAYOR on 12/01/13 0937 Furosemide (Lasix) 20 Mg Tablet, 20 MG PO DAILY Prescribed by: YUDY PAEZ on 12/17/21 1152 Gabapentin (Gabapentin) 100 Mg Capsule, 200 MG PO AM, (Reported) Entered as Reported by: TIFFANIE MONTEMAYOR on 12/01/13 0937 Gabapentin (Gabapentin) 100 Mg Capsule, 300 MG PO HS, (Reported) Entered as Reported by: TIFFANIE MONTEMAYOR on 12/01/13 0937 Omeprazole (Prilosec 20 Mg) 20 Mg Capsule.dr, 20 MG PO DAILY PRN, (Reported) Entered as Reported by: MARIIA BROWER on 09/21/10 1430 Potassium Chloride (Potassium Chloride) 20 Meq Tablet.er, 20 MEQ PO DAILY Prescribed by: YUDY PAEZ on 12/17/21 1152 Ropinirole Hcl (Requip) 1 Mg Tablet, 1 MG PO HS, (Reported) Entered as Reported by: MARIIA BROWER on 07/26/11 1250 Review of Systems Review of Systems Constitutional: see HPI EENTM: See HPI Respiratory: See HPI Cardiovascular: See HPI Gastrointestinal: See HPI Genitourinary: See HPI Musculoskeletal: see HPI Skin: see HPI Psychiatric/Neurological: See HPI Endocrine: See HPI Hematologic/Lymphatic: See HPI All Other Systems Reviewed Negative Unless Noted: No Past Ynxfple-Otpaip-Aucsxo Hx Patient Social History Tobacco Use?: No Past Medical History Surgery/Hospitalization HX: CKD; HTN Surgeries: Yes (THORACIC OUTLET BILATERAL ARMS, RIGHT KNEE SCOPE, BACK SURGER, LEFT CEA, ) Respiratory: No Cardiac: Yes (AAA) Aneurysm Neurological: Yes Reproductive Disorders: No Sexually Transmitted Disease: No Gastrointestinal: Yes (COLON POLYP REMOVED) 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 0.0oz. 77.421311rt; 23.00 BMI Method: General Appearance: No Apparent Distress, WD/WN HEENT: PERRL/EOMI Neck: Full Range of Motion, Normal Inspection Respiratory: Chest Non Tender, Lungs Clear, Normal Breath Sounds Cardiovascular: Regular Rate, Rhythm, No Edema Gastrointestinal: Non Tender, Soft Neurologic/Psychiatric: Alert, Oriented x3, No Motor/Sensory Deficits Progress/Results/Core Measures Results/Orders My Orders Orders - YUDI SIMMONS DO Clonidine Tablet (Catapres Tablet) (01/10/22 18:00) Departure Communication (Admissions) Asymptomatic hypertension. Blood pressure improved with treatment. Will continue home medication and continue supplemental regimen. Recommendations are for PCP follow-up. Return precautions reviewed. Patient verbalizes understanding agreement discharge instructions prior to departure. Impression Primary Impression: Labile hypertension Disposition: 01 HOME, SELF-CARE Condition: Stable Departure-Patient Inst. Decision time for Depature: 17:57 Referrals: TEVIN DAWKINS APRN (PCP) Primary Care Physician [facility] (Family) Primary Care Physician Patient Instructions: High Blood Pressure (DC) Add. Discharge Instructions: You were evaluated in the emergency department for elevated blood pressure. Please continue home blood pressure medication. Ypu may take clonidine as needed for systolic blood pressure greater than 160 mmhg. do not take clonidine within 2 hours of taking your scheduled home blood pressure medication. Follow- up with your PCP and/or head control clerk for further management. All discharge instructions reviewed with patient and/or family. Voiced understanding. Scripts Clonidine HCl (Clonidine HCl) 0.2 Mg Tablet 0.2 MG PO Q8H PRN for BLOOD PRESSURE, #30 TAB Prov: YUDI SIMMONS DO 01/10/22 YUDI SIMMONS DO Jan 10, 2022 17:59
[2022-01-10] MEDS ORDERED: cloNIDine 0.2 MG (CATAPRES) TAB PO ONE (18:00)
[2022-01-10] MEDS ORDERED: CLN.1T PO (18:20)
[2022-01-10 18:23] VITALS: BP 197/69
== END 2022-01-10 18:25 | disposition home or self-care (01) ==
LOC: EDUNIT# 17:40 → ER FS 17:41
DX: I12.9 Hypertensive chronic kidney disease with stage 1 through stage 4 chronic kidney disease, or unspecified chronic kidney disease (principal); N18.9 Chronic kidney disease, unspecified
CPT/HCPCS: 99283

== ENCOUNTER → 2022-03-21 | Outpatient (CLI) | payer MEDICARE, OTHER ==
[~2022-03-21] MED LIST changes: +CLN.1T PO; +CLN.2T PO
== END ==
LOC: CARD 10:29
PROVIDERS: ATTEND Physician Assistant
DX: I11.9 Hypertensive heart disease without heart failure (principal); I34.0 Nonrheumatic mitral (valve) insufficiency
CPT/HCPCS: 93306

== ENCOUNTER 2022-05-19 18:49 | Emergency (ER) | payer MEDICARE, OTHER ==
[~2022-05-19] VITALS: Ht 162.5 cm; Wt 58.8 kg
--- NOTE | 2022-05-19 18:53 | ED General ---
General Stated Complaint: ELEVATED BLOOD PRESSURE History of Present Illness Date Seen by Provider: May 19, 2022 Time Seen by Provider: 18:52 Initial Comments 86-year-old female brought in due to elevated blood pressure. Patient has been having labile hypertension at home. That she has known kidney disease with a GFR between 5 and 9. Patient was recently just stopped on her lisinopril. She was told she could take hydralazine up to 4 times a day but is only taking it 3 times a day after recent admission at [facility]. Patient is scheduled to see the car checker on Saturday. Patient is not having symptoms they were just concerned about the elevated blood pressure reading. They report last time it happened it took a couple days for her blood pressure to come down from 200s to the 150s. Allergies and Home Medications Allergies Coded Allergies: Choline Salicylate (Unverified Allergy, Unknown, 12/01/13) Diclofenac (Unverified Allergy, Unknown, 12/01/13) Flurazepam HCl (Unverified Allergy, Unknown, 12/01/13) [place]-3 acid Ethyl Esters (Unverified Allergy, Unknown, 12/01/13) Xfyatem-Jfb-Wgw Reductase Inhibitor (Unverified Allergy, Unknown, 12/01/13) Sulfa (Sulfonamide Antibiotics) (Unverified Allergy, Unknown, 12/01/13) Sulindac (Unverified Allergy, Unknown, 12/01/13) adhesive (Unverified Allergy, Unknown, 12/01/13) alprazolam (Unverified Allergy, Unknown, 12/01/13) amitriptyline (Unverified Allergy, Unknown, 12/01/13) amitriptyline HCl (Unverified Allergy, Unknown, 12/01/13) "ITCHING" aspirin (Unverified Allergy, Unknown, 12/01/13) azithromycin (Unverified Allergy, Unknown, RASH, 12/01/13) clopidogrel bisulfate (Unverified Allergy, Unknown, 12/01/13) codeine (Unverified Allergy, Unknown, 12/01/13) cyclobenzaprine HCl (Unverified Allergy, Unknown, 12/01/13) ezetimibe (Unverified Allergy, Unknown, 12/01/13) fexofenadine HCl (Unverified Allergy, Unknown, 12/01/13) ibuprofen (Unverified Allergy, Unknown, 12/01/13) iodine (Unverified Allergy, Unknown, 12/01/13) lorazepam (Unverified Allergy, Unknown, 12/01/13) magnesium salicylate (Unverified Allergy, Unknown, 12/01/13) meperidine HCl (Unverified Allergy, Unknown, 12/01/13) morphine (Unverified Allergy, Unknown, 12/01/13) naproxen (Unverified Allergy, Unknown, 12/01/13) niacin (Unverified Allergy, Unknown, 12/01/13) piroxicam (Unverified Allergy, Unknown, 12/01/13) potassium (Unverified Allergy, Unknown, 12/01/13) propoxyphene HCl (Unverified Allergy, Unknown, 12/01/13) triazolam (Unverified Allergy, Unknown, 12/01/13) Patient Home Medication List Home Medication List Reviewed: Yes Acetaminophen (Tylenol Arth Pain (Non-Formulary)) 650 Mg Cplt, 1,300 MG PO PRN PRN for PAIN, (Reported) Entered as Reported by: TIFFANIE MONTEMAYOR on 12/01/13 0937 Amlodipine Besylate (Amlodipine Besylate) 5 Mg Tablet, 5 MG PO DAILY Prescribed by: TAMICA DURÁN on 10/27/18 1157 Baclofen (Baclofen) 10 Mg Tablet, 1 EACH PO HS, (Reported) Entered as Reported by: TIFFANIE MONTEMAYOR on 12/01/13 09 Clonidine HCl (Clonidine HCl) 0.2 Mg Tablet, 0.2 MG PO Q8H PRN for BLOOD PRESSURE Prescribed by: YUDI SIMMONS on 01/10/22 1759 Clonidine HCl (Clonidine HCl) 0.1 Mg Tablet, 0.2 MG PO Q8H PRN for SBP > 160 mmhg Prescribed by: YUDI SIMMONS on 01/10/22 1820 Furosemide (Lasix) 20 Mg Tablet, 20 MG PO DAILY Prescribed by: YUDY PAEZ on 12/17/21 1152 Gabapentin (Gabapentin) 100 Mg Capsule, 200 MG PO AM, (Reported) Entered as Reported by: TIFFANIE MONTEMAYOR on 12/01/13 09 Gabapentin (Gabapentin) 100 Mg Capsule, 300 MG PO HS, (Reported) Entered as Reported by: TIFFANIE MONTEMAYOR on 12/01/13 0937 Omeprazole (Prilosec 20 Mg) 20 Mg Capsule.dr, 20 MG PO DAILY PRN, (Reported) Entered as Reported by: MARIIA BROWER on 09/21/10 1430 Potassium Chloride (Potassium Chloride) 20 Meq Tablet.er, 20 MEQ PO DAILY Prescribed by: YUDY PAEZ on 12/17/21 1152 Ropinirole Hcl (Requip) 1 Mg Tablet, 1 MG PO HS, (Reported) Entered as Reported by: MARIIA BROWER on 07/26/11 1250 Review of Systems Review of Systems Constitutional: no symptoms reported EENTM: no symptoms reported Respiratory: no symptoms reported Cardiovascular: no symptoms reported Gastrointestinal: no symptoms reported Genitourinary: no symptoms reported Musculoskeletal: no symptoms reported Skin: no symptoms reported Past [id number] Hx Past Medical History Surgery/Hospitalization HX: CKD; HTN, Abdominal aneurysm Surgeries: Yes (THORACIC OUTLET BILATERAL ARMS, RIGHT KNEE SCOPE, BACK SURGER, LEFT CEA, ) Respiratory: No Cardiac: Yes (AAA) Aneurysm Neurological: Yes Reproductive Disorders: No Sexually Transmitted Disease: No Gastrointestinal: Yes (COLON POLYP REMOVED) 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 0.0oz. [id number]; 23.00 BMI Method: General Appearance: No Apparent Distress, WD/WN Respiratory: Lungs Clear, Normal Breath Sounds Cardiovascular: Regular Rate, Rhythm, No Edema Extremity: Normal Capillary Refill, Normal Inspection, Non Tender Neurologic/Psychiatric: Alert, Oriented x3, No Motor/Sensory Deficits, Normal Mood/Affect, windshield repair technician II-XII Norm as Tested Progress/Results/Core Measures Suspected Sepsis SIRS Temperature: Pulse: Respiratory Rate: Blood Pressure / Mean: Results/Orders My Orders Orders - MALIK BUSBY DO Clonidine Tablet (Catapres Tablet) (05/19/22 19:15) Clonidine Tablet (Catapres Tablet) (05/19/22 19:45) Medications Given in ED Current Medications Medications Dose Ordered Sig/Kathryn Route Start Time Stop Time Status Last Admin Dose Admin Clonidine HCl 0.1 mg ONCE ONCE PO 05/19/22 19:15 05/19/22 19:16 DC 05/19/22 19:13 0.1 MG Clonidine HCl 0.1 mg ONCE ONCE PO 05/19/22 19:45 05/19/22 19:46 DC 05/19/22 19:47 0.1 MG Vital Signs/I&O 05/19/22 18:54 Temp 36.4 Pulse 68 Resp 20 B/P (MAP) 224/92 (136) Pulse Ox 97 O2 Delivery Room Air Capillary Refill : Progress Note : Progress Note Patient with asymptomatic hypertension. Patient has a known history of labile hypertension. She recently just had her lisinopril stopped due to concerns for kidney damage. Family presents because her blood pressure was high and they were unsure what to give her. They do have clonidine 0.1 and 0.2 at home. We trialed her with clonidine 0.1 and her blood pressure came down 20 points. I did give her an additional 0.1 just prior to discharge. She remained asymptomatic. Discussed with family that I would recommend if her blood pressures 160-180 and there had concerns they give her 0.1 and if it is greater than 180 they can go with 0.20 clonidine. They do have appointments with nephrology next week as they will also call microwave oven assembler to discuss medication adjustments. Patient has her nighttime blood pressure medications doing about an hour to hour and a half so at this time I do not want to drop any further. She is stable and discharged home Departure Impression Primary Impression: Labile hypertension Disposition: 01 HOME, SELF-CARE Condition: Stable Departure-Patient Inst. Referrals: SOU[facility] QUIROZ MD (PCP/Family) Primary Care Physician Patient Instructions: Medicines for High Blood Pressure Add. Discharge Instructions: Please follow-up with your microwave oven assembler and car checker next week for medicat ion adjustment MALIK BUSBY DO May 19, 2022 18:53
[2022-05-19] MEDS ORDERED: cloNIDine 0.1 MG (CATAPRES) TAB PO ONE ×2 (19:15→19:45)
[2022-05-19 19:54] VITALS: BP 202/72
== END 2022-05-19 19:54 | disposition home or self-care (01) ==
LOC: EDUNIT# 18:49 → ER FS 18:51
DX: I12.9 Hypertensive chronic kidney disease with stage 1 through stage 4 chronic kidney disease, or unspecified chronic kidney disease (principal); N18.9 Chronic kidney disease, unspecified; Z79.899 Other long term (current) drug therapy
CPT/HCPCS: 99283